=== PATIENT | male | born 1985 | race Caucasian/White ===

== ENCOUNTER 2017-02-10 20:05 | Emergency (ER) | payer OTHER ==
[~2017-02-10] VITALS: Ht 182.9 cm; Wt 124.6 kg
[~2017-02-10 20:05] MED LIST: AMOX875 PO; TYLE3 PO; Z.0.UNKNOWN
[2017-02-10 20:09] VITALS: BP 149/94; PULSE 110; RESP 18; TEMP 98.3; O2SAT 99
--- NOTE | 2017-02-10 20:20 | PD ---
HPI Chief Complaint: Injury Time Seen by Provider: 20:20 Travel History International Travel<30 days: No Contact w/Intl Traveler<30days: No Traveled to known affect area: No History of Present Illness HPI 31-year-old male presents to the ED for evaluation of puncture wound of the right foot. 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 The metal penetrated his shoe and punctured the plantar surface of the foot. He states that he immediately removed the sock and shoe, wash the area with soap and water before resenting to the ED. He denies numbness, tingling, weakness, limitations to range of motion of the extremity. He is unsure of the date of his last tetanus immunization. NKDA. PFSH Past Medical History Medical History: Denies Significant Hx Genitourinary: Yes (FREQUENT URINATION) Tetanus Vaccination: > 5 Years Influenza Vaccination: No ?: Not Past Surgical History Surgical History: No Previous Surgery Social History Alcohol Use: No ("Maybe once a year") Tobacco Use: No Substance Use: No Allergies-Medications (Allergen,Severity, Reaction): Coded Allergies: No Known Allergies (Verified , 02/10/17) Reported Meds & Prescriptions Reported Meds & Active Scripts Active Cipro (Ciprofloxacin HCl) 500 Mg Tab 500 Mg PO BID 5 Days Keflex (Cephalexin) 500 Mg Cap 500 Mg PO Q8H 7 Days Review of Systems Except as stated in HPI: all other systems reviewed are Neg Physical Exam Narrative GENERAL: Well-nourished, well-developed pleasant white male in no acute distress. SKIN: Focused skin assessment warm/dry. There is a miniscule puncture wound in the area of the MP joint on the plantar surface of the right foot. No visible bleeding or foreign body. HEAD: Normocephalic. EYES: No scleral icterus. No injection or drainage. NECK: Supple, trachea midline. No JVD or lymphadenopathy. CARDIOVASCULAR: Regular rate and rhythm without murmurs, gallops, or rubs. RESPIRATORY: Breath sounds equal bilaterally. No accessory muscle use. GASTROINTESTINAL: Abdomen soft, non-tender, nondistended. MUSCULOSKELETAL: No cyanosis, or edema. Focused right lower extremity exam: 2+ DP pulse. Patient maintains full, active , painless range of motion of the extremity. Neurovascularly intact. BACK: Nontender without obvious deformity. No CVA tenderness. Data Data Last Documented VS Vital Signs Date Time Temp Pulse Resp B/P Pulse Ox O2 Delivery O2 Flow Rate FiO2 02/10/17 20:09 98.3 110 18 149/94 99 Orders Tetanus/Diphtheria Tox Adult (Tetanus/Di (02/10/17 20:30) MDM Medical Decision Making Medical Screen Exam Complete: Yes Emergency Medical Condition: Yes Differential Diagnosis Puncture wound versus need for tetanus prophylaxis versus retained foreign body versus other Narrative Course 31-year-old male presents to the ED for evaluation of puncture wound of the right foot. 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 The metal penetrated his shoe and punctured the plantar surface of the foot. He states that he immediately removed the sock and shoe, wash the area with soap and water before resenting to the ED. He denies numbness, tingling, weakness, limitations to range of motion of the extremity. He is unsure of the date of his last tetanus immunization. Vitals reviewed. Physical exam reveals a miniscule skin tear on the plantar aspect of the foot in the area of the MP joint. No bleeding or foreign body. The foot was soaked in a 50-50 mix of Betadine and water for approximately 20 minutes. Patient retains full, active painless range of motion of the extremity. Neurovascularly intact. Tetanus immunization was updated. I feel that the risk of infection is very low. The patient was provided prescriptions for prophylactic antibiotics and instructed to take them should symptoms occur. We discussed reasons to return to the ED. He indicated understanding of the instructions and is agreeable to care plan. Patient stable and discharged home. Diagnosis Primary Impression: Puncture wound of right foot Qualified Code: S91.331A - Puncture wound of right foot, initial encounter Additional Impression: Need for prophylactic vaccination with tetanus toxoid alone Referrals: Primary Care Physician Patient Instructions: General Instructions, Puncture Wound (ED) Additional Instructions: Rest, ice, elevate the extremity. Apply ice no longer than 10-15 minutes per hour a few times a day. Begin antibiotics if signs of infection occur. [id number] medications as described on the label, as needed. Return to normal, gentle activity as tolerated. Keep the wound clean and dry and covered. Follow-up with primary care provider next week. Return to the ED for any urgent or emergent medical condition. Scripts Ciprofloxacin (Cipro)500 Mg Tht216 Mg PO BID 5 Days Ref 0 Prov:Caio Mena MD 02/10/17 Cephalexin (Keflex)500 Mg Mte822 Mg PO Q8H 7 Days Ref 0 Prov:Caio Mena MD 02/10/17 Disposition: 01 DISCHARGE HOME Condition: Stable Lilly Callahan Feb 10, 2017 20:20
[2017-02-10] MEDS ORDERED: TETANUS/DIPHTHERIA TOXOID ADULT 0.5 ML VIAL IM ONE (20:30)
[2017-02-10] MEDS ORDERED: CIPR-9 PO (20:34)
[2017-02-10] MEDS ORDERED: CEPH-460 PO (20:34)
== END 2017-02-10 20:55 | disposition home or self-care (01) ==
LOC: PHEFT 20:05
DX: S91.331A Puncture wound without foreign body, right foot, initial encounter (principal); Z23 Encounter for immunization
CPT/HCPCS: 90471; 90714